=== PATIENT | female | born 1990 | race Caucasian/White ===

== ENCOUNTER 2022-05-30 14:53 | Emergency (ER) | payer MEDICAID, SELFPAY ==
[2022-05-30 15:07] VITALS: BP 104/68; PULSE 89; RESP 16; TEMP 37.2; O2SAT 96
--- NOTE | 2022-05-30 15:37 | XR_ITS ---
WS: [id number] Exam: XR chest 1V portable [id number] Date/Time of Exam: 05/30/2022 3:41 PM Reason For Exam: cough, fever and congestion No priors. The lungs are clear and fully expanded. Normal cardiomediastinal silhouette. No pleural effusions. [place] structures are intact. XR/XR chest 1V portable [id number] IMPRESSION: 1. Negative chest.
--- NOTE | 2022-05-30 15:39 | ED_ITS ---
HPI - Fever General: Chief Complaint: Fever Stated Complaint: fever,cough,n/v,sore Time Seen by Provider: 05/30/22 15:14 History of Present Illness: Patient is a 31-year-old female comes to the ED with upper respiratory symptoms. Symptoms started today. She is complaining of cough, nasal congestion and drainage, body aches, sore throat and nausea. She had 1 episode of emesis today. Endorses having a fever as well. Patient's work told her to come to the ED to get evaluated and to get viral swabs. Associated symptoms: Reports nasal congestion, nausea and vomiting; Deny abdominal pain, flank pain, chills, chest pain, diarrhea, dysuria or headache(s) Review of Systems Const: Denies: fever(s), chills or fatigue Eyes: Denies: change in vision or eye discomfort ENMT: Reports: throat pain, nasal discharge and nasal congestion; Denies: odynophagia Card: Denies: chest pain, palpitations, edema, swelling of feet/ankles, dyspnea on exertion or orthopnea Resp: Reports: non-productive cough; Denies: dyspnea or productive cough GI: Reports: nausea and vomiting; Denies: abdominal pain, diarrhea, constipation or hematochezia : Denies: flank pain, dysuria or hematuria Musc: Denies: neck pain, back pain or extremity swelling Skin/Breast: Denies: rash or new lesions Neuro: Denies: headache(s), numbness in extremities or weakness in extremities PFS ED PFSH: Medical History No pertinent family history Surgical History No pertinent past surgical history Physical Exam Const: COMMON NORMALS: no acute distress, patient oriented x3 and alert GENERAL APPEARANCE: cooperative and comfortable HENMT: COMMON NORMALS: normocephalic HEAD & SCALP: normocephalic MOUTH: Normal oral and palatal mucosa present THROAT: posterior oropharynx normal and uvula midline Neck/C-Spine: COMMON NORMALS: supple GENERAL: Yes normal visual inspection Resp: COMMON NORMALS: normal respiratory effort, No retractions, No use of accessory muscles and clear to auscultation bilaterally AUSCULTATION: clear to auscultation bilaterally Cardio: COMMON NORMALS: regular rate, regular rhythm, S1 normal heart sound present, S2 normal heart sound present, No gallops present (Cardio), No clicks present (Cardio), No murmurs present (Cardio) and Peripheral pulses 2+ throughout RATE: regular rate RHYTHM: regular rhythm HEART SOUNDS: S1 normal heart sound present and S2 normal heart sound present PERIPHERAL PULSES: Peripheral pulses 2+ throughout GI: COMMON NORMALS: Normal to inspection, nondistended, normoactive bowel sounds present, Soft to palpation, non-tender and no masses PALPATION: Yes Soft to palpation : COMMON NORMALS: Yes no CVA tenderness BLADDER/KIDNEY EXAM: Yes no CVA tenderness Back/Pelvis: COMMON NORMALS: no CVA tenderness Extremity: COMMON NORMALS: normal to inspection Neuro: COMMON NORMALS: patient oriented x3 SENSORIUM/ORIENTATION: Yes alert GAIT: Yes Normal gait present Skin: GENERAL SKIN EXAM: dry skin Course Vital Signs: Vital signs: Vital Signs Temperature 98.9 F 05/30/22 15:07 Pulse Rate 89 05/30/22 15:07 Respiratory Rate 16 05/30/22 15:07 Blood Pressure 104/68 05/30/22 15:07 Pulse Oximetry 96 05/30/22 15:07 Oxygen Delivery Me thod 05/30/22 15:07 MDM - Fever Medical Decision Making Patient is a 31-year-old female comes to the ED with upper respiratory symptoms. She has been having fever, cough, nasal drainage/congestion, chills, body aches, nausea and sore throat that started today. Patient was told by her employer to get tested, so she came here to the ED. Vitals are stable. Patient is healthy appearing and nontoxic and in no acute distress or pain. Rest of exam is benign. Chest x-ray shows no acute findings. Influenza, COVID and strep were all negative. Patient was given a dose of Zofran and Toradol here in the ED. Patient was stable for discharge home diagnosed upper respiratory viral infection. She was told to follow-up with her PCP within the next week for reevaluation. I sent her with a prescription for some Zofran to help with any nausea. Return to ED precautions given. Patient understood and agreed with plan. Lab Data I reviewed the patient's lab results. Radiology Impressions Chest X-Ray 05/30/22 15:37 IMPRESSION: 1. Negative chest. Laboratory Results Influenza Type A Ag negative (Negative) 05/30/22 15:48 Influenza Type B Ag negative (Negative) 05/30/22 15:48 SARS-CoV-2 Ag (Rapid) negative (Negative) 05/30/22 15:48 Group A Strep Rapid Negative (Negative) 05/30/22 15:48 Discharge Plan Discharge Patient Disposition: Home Clinical Impression: Viral URI Condition: Stable Prescriptions: New ondansetron 4 mg tablet,disintegrating 4 mg PO Q8H PRN (Reason: nausea and vomiting) Qty: 20 0RF Discharge Orders: Discharge ED (Routine); Ordered 05/30/22 Ordered By: Shilo Young Discharge Diet: Regular Discharge Activity: Increase activity as tolerated Patient Instructions: Upper Respiratory Infection (ED), Viral Syndrome (ED) Activity Restrictions/Additional Instructions: Follow-up with medical provider as directed in the next 7 to 10 days for reevaluation. Take medications as prescribed. Return to the ER or your medical provider if condition worsens. Please read and understand discharge instructions. Thank you for choosing [facility] for your healthcare needs today. Please realize this is an emergency room and that we are providing you with a medical screening exam and this may not be complete and all inclusive of all the testing and or work up that you may need to determine your ailment or severity of your illness. It is very important that you follow up as instructed or that you return to the Emergency Department should you have concerns or if your condition changes or worsens in any way. Coding Level of Care Code ED [employer] T[employer] for Odilia Miller Exam Comprehensive
[2022-05-30] MEDS: ondansetron 2 mg/ML SDV 2 mL 4 MG IM (15:56)
[2022-05-30] MEDS: ketorolac 60 mg/2 mL INJ IM (15:56)
[2022-05-30 16:27] LABS: Rapid Strep A Test Negative (Negative)
[2022-05-30 16:33] LABS: Influenza A by IFA negative (Negative); Influenza B by IFA negative (Negative); SARS Covid-2 Antigen negative (Negative)
== END 2022-05-30 16:53 | disposition home or self-care (01) ==
PROVIDERS: Emergency Provider Physician Assistant
DX: J06.9 Acute upper respiratory infection, unspecified (principal); Z20.822 Contact with and (suspected) exposure to COVID-19
CPT/HCPCS: 71045; 87081; 87426; 87804; 87880; 96372; 99284; J1885; J2405